=== PATIENT | male | born 1940 | race Two or more races ===

== ENCOUNTER → 2017-05-19 | Outpatient (CLI) | payer OTHER ==
[~2017-05-19] MED LIST: LIPITOR20 MG; NEXIUM20 MG/PACK; TENORMIN25 MG; XANAX0.25 MG
== END | disposition home or self-care (01) ==
LOC: SONOGRAMA 14:15
DX: R31.0 Gross hematuria (principal); N40.1 Benign prostatic hyperplasia with lower urinary tract symptoms

== ENCOUNTER 2017-09-09 17:40 | Emergency (ER) | payer OTHER ==
[~2017-09-09] VITALS: Ht 170.2 cm; Wt 81.6 kg
[2017-09-09] MEDS ORDERED: SYNTHROID50 MCG (17:54)
[2017-09-09] MEDS ORDERED: [UNRECOGNIZED DRUG - OTHER] (17:55)
[2017-09-09] MEDS ORDERED: CARDURA XL4 MG (17:55)
== END 2017-09-09 19:57 | disposition home or self-care (01) ==
LOC: ER 17:40
DX: R21 Rash and other nonspecific skin eruption (principal)

== ENCOUNTER 2018-12-24 08:06 | Outpatient (CLI) | payer OTHER ==
[~2018-12-24 08:06] MED LIST changes: +CARDURA XL4 MG; +SYNTHROID50 MCG; +[UNRECOGNIZED DRUG - OTHER]
== END 2018-12-24 08:15 | disposition home or self-care (01) ==
LOC: SONOGRAMA 08:06
DX: E04.2 Nontoxic multinodular goiter (principal)